=== PATIENT | male | born 1960 | race Caucasian/White ===

== ENCOUNTER 2023-11-10 11:27 | Day surgery (SDC) | payer BC ==
[2023-11-10] VITALS (20 sets, daily range): BP systolic 61–122; BP diastolic 36–79; PULSE 42–107; RESP 13–20; TEMP 97.3; O2SAT 94–99
[~2023-11-10] VITALS: Ht 167.6 cm; Wt 104.5 kg
[2023-11-10] MEDS ORDERED: APIX5TAB3 PO (12:19)
[2023-11-10] MEDS ORDERED: SOTA80TA73 PO (12:19)
[2023-11-10] MEDS ORDERED: MELO-102 PO (12:46)
[2023-11-10 12:48] LABS: BASOPHILS # (AUTO) 0.1 X10'3 (0-0.2); BASOPHILS % (AUTO) 0.5 % (0-1); EOSINOPHILS # (AUTO) 0.2 X10'3 (0-0.9); EOSINOPHILS % (AUTO) 2.2 % (0-6); HEMATOCRIT 54.8 % (42.0-52.0); LYMPHOCYTES # (AUTO) 3.8 X10'3 (1.1-4.8); LYMPHOCYTES % (AUTO) 34.1 % (21-51); MEAN CORPUSCULAR HEMOGLOBIN 30.7 PG (27.0-31.0); MEAN CORPUSCULAR HGB CONC 34.2 g/dL (33.0-36.5); MEAN CORPUSCULAR VOLUME 89.7 FL (78-98); MEAN PLATELET VOLUME 8.5 FL (7.4-10.4); MONOCYTES # (AUTO) 0.9 X10'3 (0-0.9); MONOCYTES % (AUTO) 8.4 % (2-12); NEUTROPHILS # (AUTO) 6.2 X10'3 (1.8-7.7); NEUTROPHILS % (AUTO) 54.8 % (42-75); PLATELET COUNT 234 X10'3 (140-440); RED CELL DISTRIBUTION WIDTH 14.2 % (11.5-14.5); WHITE BLOOD COUNT 11.2 X10'3 (4.5-11.0)
[2023-11-10 12:52] LABS: HEMOGLOBIN 18.7 g/dl (14.0-17.9)
[2023-11-10 12:56] LABS: INR 1.1 INR; PROTHROMBIN TIME 11.8 SECONDS (9.0-12.0)
[2023-11-10] MEDS: normal saline 1000ml 1,000 ML IV SCH (13:00)
[2023-11-10 13:09] LABS: ALBUMIN 4.4 G/DL (3.4-5.0); ANION GAP 12 (8-16); BLOOD UREA NITROGEN 15 MG/DL (7-18); BUN/CREATININE RATIO 12.9 (10.0-20.0); CALCIUM 9.6 MG/DL (8.5-10.1); CHLORIDE 103 MMOL/L (99-107); CREATININE 1.16 MG/DL (0.60-1.10); GLUCOSE 87 MG/DL (70-104); POTASSIUM 4.1 MMOL/L (3.5-5.1); SODIUM 141 MMOL/L (135-145); TOTAL CARBON DIOXIDE 26.5 MMOL/L (24-32); eCRCL 59 ML/MIN; eGFR 64 ML/MIN
[2023-11-10] MEDS: MIDAZolam 1mg/ml 10ml vial IV ONE (15:03)
[2023-11-10] MEDS: fentaNYL/PF 50MCG/1 ML 2ML syringe IV ONE (15:03)
[2023-11-10] MEDS ORDERED: naloxone 0.4 mg/ml inj ONE (17:00)
== END 2023-11-10 17:05 | disposition home or self-care (01) ==
LOC: SSTAY O 11:27
PROVIDERS: ATTEND Student in an Organized Health Care Education/Training Program
DX: I48.91 Unspecified atrial fibrillation (principal); I34.0 Nonrheumatic mitral (valve) insufficiency; Z79.01 Long term (current) use of anticoagulants; Z79.899 Other long term (current) drug therapy
CPT/HCPCS: 36415; 80048; 85025; 85610; 92960; 93005; J2250; J3010; J7030; 96360; A4620; J2310